=== PATIENT | male | born 1995 | race African-American/Black ===

== ENCOUNTER 2016-12-04 17:25 | Emergency (ER) | payer SELFPAY ==
[~2016-12-04] VITALS: Ht 185.4 cm; Wt 72.7 kg
[2016-12-04 19:32] VITALS: BP 134/78
== END 2016-12-04 20:01 | disposition home or self-care (01) ==
LOC: EMS 17:27
DX: S93.402A Sprain of unspecified ligament of left ankle, initial encounter (principal); X50.1XXA Overexertion from prolonged static or awkward postures, initial encounter; Y93.67 Activity, basketball; Y92.310 Basketball court as the place of occurrence of the external cause; Y99.8 Other external cause status
CPT/HCPCS: 99284